=== PATIENT | female | born 1935 | race Caucasian/White ===

== ENCOUNTER 2017-03-25 11:17 | Emergency (ER) | payer OTHER ==
[~2017-03-25] VITALS: Ht 165.1 cm; Wt 86.0 kg
[2017-03-25 11:22] VITALS: BP 192/86; PULSE 92; RESP 16; TEMP 97.5; O2SAT 96
[2017-03-25] MEDS ORDERED: AMLO10TA2 PO (11:51)
[2017-03-25] MEDS ORDERED: XARE10TA PO (11:51)
[2017-03-25] MEDS ORDERED: COQ130CA PO (11:51)
[2017-03-25] MEDS ORDERED: LOSA50TA PO (11:51)
[2017-03-25] MEDS ORDERED: METO25TA3 PO (11:51)
--- NOTE | 2017-03-25 12:03 | PD ---
HPI Chief Complaint: Fall Time Seen by Provider: 11:33 Travel History International Travel<30 days: No Contact w/Intl Traveler<30days: No Traveled to known affect area: No History of Present Illness HPI 81-year-old female with history of A. fib on Xarelto here with her neighbor for evaluation of right eye pain and periorbital swelling after a mechanical fall out of bed at around 3:00 AM. Patient reports that she rolled out of bed and struck her right face/eye on the nightstand. There was no loss of consciousness. She has been applying ice to her eyelid and states that although there is swelling, it has improved. Pain is mild to moderate, constant , worse with palpation. She reports chronic neck pain from arthritis which is no different than usual. She has felt nauseous. She denies any other injuries. PFSH Past Medical History Hx Anticoagulant Therapy: Yes (XARELTO) Atrial Fibrillation: Yes Cardiovascular Problems: Yes Hypertension: Yes Tetanus Vaccination: > 5 Years Influenza Vaccination: No ?: Not Menopausal: Yes Past Surgical History Surgical History: No Previous Surgery Social History Alcohol Use: No Tobacco Use: No (quit 15 yrs ago) Allergies-Medications (Allergen,Severity, Reaction): Coded Allergies: No Known Allergies (Unverified , 03/25/17) Reported Meds & Prescriptions Reported Meds & Active Scripts Active Reported Coq10 (Coenzyme Q10 (Ubidecarenone)) Unknown Strength Cap Unknown Dose PO DAILY Amlodipine (Amlodipine Besylate) 10 Mg Tab 10 Mg PO DAILY Metoprolol Tartrate 25 Mg Tab 25 Mg PO DAILY Losartan (Losartan Potassium) 50 Mg Tab 50 Mg PO DAILY Xarelto (Rivaroxaban) 10 Mg Tab 10 Mg PO DAILY Review of Systems Except as stated in HPI: all other systems reviewed are Neg Physical Exam Narrative GENERAL: Well-developed, well-nourished, awake, alert, no apparent distress. SKIN: Focused skin assessment warm/dry. HEAD: Right periorbital ecchymosis and edema. Normocephalic. EYES: Right periorbital ecchymosis and edema. There is a small approximately 2 mm laceration to the mid upper eyelid border on the right. There is chemosis and subconjunctival hemorrhage on the right. No proptosis. Extraocular movements are intact bilaterally. Pupils are equal, round, 3 mm, reactive to light. Patient reports normal vision in the right eye. Intraocular pressure in the left eye is 26 mmHg, in the right eye is 32 mmHg. ENT: No nasal bleeding or discharge. Mucous membranes pink and moist. NECK: Trachea midline. No JVD. No midline cervical spine step-off or tenderness. CARDIOVASCULAR: Regular rate and rhythm. RESPIRATORY: No accessory muscle use. Clear to auscultation. Breath sounds equal bilaterally. GASTROINTESTINAL: Abdomen soft, non-tender, nondistended. Hepatic and splenic margins not palpable. MUSCULOSKELETAL: No obvious deformities. No clubbing. No cyanosis. No edema. No midline vertebral step-off or tenderness. Normal range of motion in all joints and extremities without obvious deformity, without tenderness. NEUROLOGICAL: Awake and alert. No obvious cranial nerve deficits. Motor grossly within normal limits. Normal speech. PSYCHIATRIC: Appropriate mood and affect; insight and judgment normal. Data Data Last Documented VS Vital Signs Date Time Temp Pulse Resp B/P (MAP) Pulse Ox O2 Delivery O2 Flow Rate FiO2 03/25/17 11:31 16 96 Room Air 03/25/17 11:22 97.5 92 192/86 (121) Orders Orders Ct Brain W/O Iv Contrast(Rout) (03/25/17 ) Ct Facial Bones W/O Iv Cont (03/25/17 ) Ct Cerv Spine W/O Contrast (03/25/17 ) Proparacaine 0.5% Opth Soln (Alcaine 0.5 (03/25/17 13:00) Basic Metabolic Panel (Bmp) (03/25/17 13:34) Complete Blood Count With Diff (03/25/17 13:34) Prothrombin Time / Inr (Pt) (03/25/17 13:34) Act Partial Throm Time (Ptt) (03/25/17 13:34) Iv Access Insert/Monitor (03/25/17 13:34) Ecg Monitoring (03/25/17 13:34) Oximetry (03/25/17 13:34) Sodium Chloride 0.9% Flush (Ns Flush) (03/25/17 13:45) ^ Lab Follow Up (03/25/17 13:34) Prothrombin Complex Conc Inj (Kcentra In (03/25/17 14:15) MDM Medical Decision Making Medical Screen Exam Complete: Yes Emergency Medical Condition: Yes Differential Diagnosis Facial contusion, facial bone fracture, intracranial trauma, retro-orbital hematoma, eyelid laceration Narrative Course Vital signs reviewed. CT brain: CONCLUSION: 1. No acute findings in the brain. 2. Abnormal appearance to the right orbit and maxillary sinus, partially included in the [id number]. Facial bone CT will be performed. CT cervical spine: CONCLUSION: No evidence of acute fractures or spondylolisthesis. CT facial bones: CONCLUSION: Inferior orbital fracture on the right with extensive fluid and hemorrhage in the right maxillary sinus. There Is also fluid around the optic nerve and the lateral rectus muscle. The globe is mildly proptotic without significant tension on the globe.. The patient and the patient's friend/family at the bedside were made aware of all findings. Patient's eye was reassessed and she reports that she still has normal vision in her right eye. Again the pressures were measured in her eyes and show 26 mmHg in the left eye, 32 mmHg in the right eye. At this point I do not believe that emergent lateral canthotomy is warranted. Because the patient is on Xarelto, she will be given a dose of Kcentra. I am concerned that the patient may eventually need a lateral canthotomy should her vision worsen. Unfortunately we do not have ophthalmology on-call this weekend. I was able to contact the link trainer maintenance man lead quality control technician at [facility], Dr. Collado. He will like the patient to be transferred to the emergency department at their facility where he will evaluate the patient. Case discussed with emergency physician Dr. De La Cruz. The patient is amenable to this plan. Diagnosis Primary Impression: Retrobulbar hematoma Additional Impression: Fracture of inferior orbital wall Qualified Codes: S02.31XA - Fracture of orbital floor, right side, initial encounter for closed fracture Disposition: 70 TRANSFER TO OTHER FACILITY Condition: Stable Travis Thorne MD Mar 25, 2017 12:03
--- NOTE | 2017-03-25 12:43 | RADRPT ---
EXAM DATE/TIME: 03/25/2017 12:17 [facility] COMPARISON: No previous studies available for comparison. INDICATIONS : Fell out of bed this morning. Head injury. RADIATION DOSE: 58.51 CTDIvol (mGy) MEDICAL HISTORY : Hypertension. Anti-coagulant therapy. SURGICAL HISTORY : None. ENCOUNTER: Initial ACUITY: 1 day PAIN SCALE: 5/10 LOCATION: Right cranial TECHNIQUE: Multiple contiguous axial images were obtained of the head. Using automated exposure control and adj ustment of the mA and/or kV according to patient size, radiation dose was kept as low as reasonably a chievable to obtain optimal diagnostic quality images. DICOM format image data is available electro nically for review and comparison. FINDINGS: CEREBRUM: The ventricles are normal for age. No evidence of midline shift, mass lesion, hemorrhage or acute in farction. No extra-axial fluid collections are seen. POSTERIOR FOSSA: The cerebellum and brainstem are intact. The 4th ventricle is midline. The cerebellopontine angle i s unremarkable. EXTRACRANIAL: Abnormal appearance to the visualized structures of the right orbit and right maxillary sinus with david bcutaneous soft tissue swelling, gas in the orbit, and a mixture of gas and fluid maxillary sinus. T his suggests bony injury; facial bone CT is pending. SKULL: The calvaria is intact. No evidence of skull fracture. CONCLUSION: 1. No acute findings in the brain. 2. Abnormal appearance to the right orbit and maxillary sinus, partially included in the [id number] w. Facial bone CT will be performed. Andrea Chi MD on March 25, 2017 at 12:39 Board Certified Radiologist. This report was verified electronically.
--- NOTE | 2017-03-25 12:47 | RADRPT ---
EXAM DATE/TIME: 03/25/2017 12:17 [facility] COMPARISON: No previous studies available for comparison. INDICATIONS : Fell out of bed this morning. Right orbital ecchymosis. RADIATION DOSE: 25.73 CTDIvol (mGy) MEDICAL HISTORY : Hypertension. Anti-coagulant therapy. SURGICAL HISTORY : None. ENCOUNTER: Initial ACUITY: 1 day PAIN SCORE: 4/10 LOCATION: Right facial TECHNIQUE: Volumetric scanning of the facial bones was performed. Using automated exposure control and adjustme nt of the mA and/or kV according to patient size, radiation dose was kept as low as reasonably achiev able to obtain optimal diagnostic quality images. DICOM format image data is available electronicall y for review and comparison. FINDINGS: ORBITS: There is significant hemorrhage around the optic nerve and the lateral rectus muscle. The right globe is mildly proptotic. I don't see definitive mass effect on the optic nerve NASAL BONE: The nasal bone and maxillary spine are intact ZYGOMATIC ARCHES: Symmetric without evidence of fracture. SINUSES: There is significant fluid within the right maxillary sinus. There is a inferior orbital rim fracture which is slightly depressed.. NASAL CAVITY: The nasal septum is intact and midline. The lacrimal ducts are intact. SOFT TISSUES: There is significant soft tissue swelling overlying the right orbital region. INTRACRANIAL: No intracranial air seen. CRIBIFORM PLATE: Grossly intact. CONCLUSION: Inferior orbital fracture on the right with extensive fluid and hemorrhage in the right maxillary sin us. There Is also fluid around the optic nerve and the lateral rectus muscle. The globe is mildly pro ptotic without significant tension on the globe.. Michael Blanco MD on March 25, 2017 at 12:43 Board Certified Radiologist. This report was verified electronically.
--- NOTE | 2017-03-25 12:47 | RADRPT ---
EXAM DATE/TIME: 03/25/2017 12:17 [facility] COMPARISON: No previous studies available for comparison. INDICATIONS : Fell out of bed this morning. Head injury. RADIATION DOSE: 26.65 CTDIvol (mGy) MEDICAL HISTORY : Hypertension. Anti-coagulant therapy. SURGICAL HISTORY : None. ENCOUNTER: Initial ACUITY: 1 day PAIN SCALE: 5/10 LOCATION: neck TECHNIQUE: Volumetric scanning of the cervical spine was performed. Multiplanar reconstructions in the sagittal, coronal and oblique axial planes were performed. Using automated exposure control and adjustment o f the mA and/or kV according to patient size, radiation dose was kept as low as reasonably achievable to obtain optimal diagnostic quality images. DICOM format image data is available electronically f or review and comparison. FINDINGS: There is diffuse osteopenia. Vertebral body height is maintained. The atlantoaxial articulation is intact. Moderate severity asymmetric hypertrophic changes in the facet joints, more prominent on the left than on the right. C2-C3: No fracture seen. The neural foramina are patent. C3-C4: No fracture seen. The neural foramina are patent. C4-C5: No fracture seen. The neural foramina are patent. C5-C6: No fracture seen. The neural foramina are patent. C6-C7: No fracture seen. The neural foramina are patent. C7-T1: No fracture seen. The neural foramina are patent. CONCLUSION: No evidence of acute fractures or spondylolisthesis. Andrea Chi MD on March 25, 2017 at 12:42 Board Certified Radiologist. This report was verified electronically.
[2017-03-25 13:00] VITALS: BP 174/84; PULSE 79; RESP 16; O2SAT 96
[2017-03-25] MEDS ORDERED: PROPARACAINE HCL 0.5% OPHT SOLN 15 ML BTL EACH EYE ONE (13:00)
[2017-03-25] MEDS ORDERED: SODIUM CHLORIDE 0.9% FLUSH 10 ML FLUSH IV FLUSH PRN (13:45)
[2017-03-25 14:07] VITALS: RESP 16; O2SAT 97
[2017-03-25 14:07] LABS: AUTOMATED NEUTROPHIL # 9.9 TH/MM3 (1.8-7.7); BASOPHIL % 0.3 % (0.0-2.0); EOSINOPHIL % 0.1 % (0.0-4.0); HEMOGLOBIN 13.9 GM/DL (11.6-15.3); LYMPHOCYTE # 0.7 TH/MM3 (1.0-4.8); MEAN CELL VOLUME 88.4 FL (80.0-100.0); MEAN CORPUSCULAR HEMOGLOBIN 29.2 PG (27.0-34.0); MEAN PLATELET VOLUME 7.9 FL (7.0-11.0); MONO % 0.6 % (0.0-8.0); MONOCYTE # 0.1 TH/MM3 (0-0.9); PLATELET COUNT 302 TH/MM3 (150-450); RED BLOOD COUNT 4.76 MIL/MM3 (4.00-5.30); RED CELL DISTRIBUTION WIDTH 12.7 % (11.6-17.2); WHITE BLOOD COUNT 10.7 TH/MM3 (4.0-11.0)
[2017-03-25] MEDS ORDERED: PROTHROMBIN COMPLEX IV ONE (14:15)
[2017-03-25 14:26] LABS: CALCIUM 9.2 MG/DL (8.5-10.1)
[2017-03-25 14:27] LABS: BICARBONATE 25.4 MEQ/L (21.0-32.0)
[2017-03-25 14:30] LABS: CREATININE 0.68 MG/DL (0.50-1.00)
[2017-03-25 14:42] LABS: INTERNATIONAL NORMALIZED RATIO 1.1 RATIO; PROTHROMBIN TIME - PATIENT 10.7 SEC (9.8-11.6)
[2017-03-25 14:47] VITALS: BP 195/91
== END 2017-03-25 15:04 | disposition short-term general hospital (02) ==
LOC: PHEFT 11:17
DX: S02.81XA Fracture of other specified skull and facial bones, right side, initial encounter for closed fracture (principal); I48.91 Unspecified atrial fibrillation; I10 Essential (primary) hypertension; W06.XXXA Fall from bed, initial encounter; Z79.899 Other long term (current) drug therapy
CPT/HCPCS: 70450; 70486; 72125; 80048; 85025; 85610; 85730; 96365; 99284; C9132